=== PATIENT | male | born 2000 | race Caucasian/White ===

== ENCOUNTER 2018-06-17 12:42 | Emergency (ER) | payer OTHER | END 2018-06-17 16:34 | disposition home or self-care (01) | LOC: M ED 12:42 | DX: S39.012A Strain of muscle, fascia and tendon of lower back, initial encounter (principal); S39.013A Strain of muscle, fascia and tendon of pelvis, initial encounter; S20.219A Contusion of unspecified front wall of thorax, initial encounter; V43.52XA Car driver injured in collision with other type car in traffic accident, initial encounter; Y92.410 Unspecified street and highway as the place of occurrence of the external cause | CPT/HCPCS: 71101 ==

== ENCOUNTER 2018-10-24 14:03 | Emergency (ER) | payer OTHER ==
[~2018-10-24] VITALS: Ht 172.7 cm; Wt 77.8 kg
[~2018-10-24 14:03] MED LIST: IBUP-1022 PO; ROBA500T PO
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
--- NOTE | 2018-10-24 15:32 | REP ---
LEFT SHOULDER, THREE VIEWS: There is no evidence of an acute fracture, dislocation or intrinsic bone disease. IMPRESSION: No fracture or dislocation. Electronically Signed by Raji Rutherford MD 10/27/2018 11:55 A
--- NOTE | 2018-10-24 15:33 | REP ---
CHEST, TWO VIEWS: There is no evidence of acute infiltrate. No pleural effusion is seen. The heart is normal in size. The mediastinal silhouette is unremarkable. The visualized osseous structures are intact. IMPRESSION: No acute pulmonary disease. Electronically Signed by Raji Rutherford MD 10/27/2018 11:55 A
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
--- NOTE | 2018-10-24 15:43 | REP ---
RIGHT ANKLE, FOUR VIEWS: There is no evidence of an acute fracture, dislocation or intrinsic bone disease. IMPRESSION: No fracture or dislocation. Electronically Signed by Raji Rutherford MD 10/27/2018 11:57 A
[2018-10-24] MEDS ORDERED: NS 1,000 ML IV SCH (16:50)
[2018-10-24 18:25] VITALS: BP 139/60
--- NOTE | 2018-10-24 18:53 | ECGEPIP ---
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
== END 2018-10-24 18:34 | disposition short-term general hospital (02) ==
LOC: EDBD 14:03 → M ED 14:03
DX: S06.330A Contusion and laceration of cerebrum, unspecified, without loss of consciousness, initial encounter (principal); S02.5XXA Fracture of tooth (traumatic), initial encounter for closed fracture; I45.19 Other right bundle-branch block; W00.9XXA Unspecified fall due to ice and snow, initial encounter; Y92.89 Other specified places as the place of occurrence of the external cause; Y93.21 Activity, ice skating; Y99.9 Unspecified external cause status

== ENCOUNTER 2019-01-19 12:44 | Inpatient (IN) | payer OTHER ==
[~2019-01-19] VITALS: Ht 172.7 cm; Wt 75.6 kg
[2019-01-19 14:26] LABS: HEMATOCRIT 47.3 % (42.0-52.0); HEMOGLOBIN 16.8 g/dl (13.5-17.5); MEAN CORPUSCULAR HEMOGLOBIN 31.6 pg (27.0-33.0); MEAN CORPUSCULAR HGB CONC 35.5 g/dl (32.0-36.5); MEAN CORPUSCULAR VOLUME 89.1 fl (80.0-96.0); PLATELET COUNT, AUTOMATED 176 10^3/uL (150-450); RED BLOOD COUNT 5.31 10^6/uL (4.30-6.10); WHITE BLOOD COUNT 7.4 10^3/uL (4.0-10.0)
[2019-01-19 14:49] LABS: AMPHETAMINES LEVEL URINE NEGATIVE (NEGATIVE); BARBITURATES URINE NEGATIVE (NEGATIVE); BENZODIAZEPINES URINE NEGATIVE (NEGATIVE); CANNABINOIDS URINE NEGATIVE (NEGATIVE); COCAINE METABOLITE URINE NEGATIVE (NEGATIVE); METHADONE URINE NEGATIVE (NEGATIVE); OPIATES URINE NEGATIVE (NEGATIVE); PHENCYCLIDINE URINE NEGATIVE (NEGATIVE)
[2019-01-19 16:04] LABS: ACETAMINOPHEN LEVEL < 2.0 UG/ML (10.0-30.0); ALBUMIN 4.2 GM/DL (3.2-5.2); ALT/SGPT 24 U/L (12-78); BILIRUBIN,DIRECT 0.2 MG/DL (0.0-0.2); BILIRUBIN,TOTAL 0.7 MG/DL (0.2-1.0); BLOOD UREA NITROGEN 13 MG/DL (7-18); CALCIUM LEVEL 9.1 MG/DL (8.5-10.1); CARBON DIOXIDE LEVEL 30 MEQ/L (21-32); CHLORIDE LEVEL 104 MEQ/L (98-107); CREATININE FOR GFR 1.08 MG/DL (0.70-1.30); ETHYL ALCOHOL (ETHANOL) < 0.003 % (0.000-0.010); GLUCOSE, FASTING 81 MG/DL (70-100); POTASSIUM SERUM 4.2 MEQ/L (3.5-5.1); SALICYLATE LEVEL < 1.7 MG/DL (5.0-30.0); SODIUM LEVEL 141 MEQ/L (136-145); TOTAL PROTEIN 7.2 GM/DL (6.4-8.2)
[2019-01-19] MEDS ORDERED: MAALOX 30 ML SUSP *UDC PO PRN (17:00)
[2019-01-19] MEDS ORDERED: MOM 30ML SUSPENSION UDC PO PRN (17:00)
[2019-01-19] MEDS ORDERED: ACETAMINOPHEN TAB 650MG DOSE (2X325MG) PO PRN (17:00)
[2019-01-20 06:42] VITALS: BP 139/62
--- NOTE | 2019-01-20 10:04 | HPEPDOC ---
General Date of Admission Jan 19, 2019 at 16:49 Date of Service: Jan 20, 2019 Attending Physician: ALENA HINSON MD Chief Complaint The patient is a 18-year-old male admitted with a reason for visit of Unspecified Depressive Do. History of Present Illness Patient is a 18-year-old male, past medical history significant for depression, presented on account of worsening depression and suicidal ideation. Trigger for recent episode being recent visit to his grandfathers grave in [place]. Patient also reports prior suicide attempt at the age of 10 years. On assessment he denies any medical history or complaints. He denies chest pain, shortness of breath, weakness, nausea, fevers. Home Medications No Active Prescriptions or Reported Meds Allergies Coded Allergies: No Known Allergies (Unverified , 06/17/18) Past Medical History Medical History Depression Surgical History Abdominal surgery Family History Mother with bipolar disorder Social History * Smoker: Denies Alcohol: occationally Drugs: denies A-FIB/CHADSVASC A-FIB History Current/History of A-Fib/PAF?: No Current PO Anticoag Therapy: No Review of Systems Other systems A 10 point pertinent review of systems was completed, negative except as stated in the history of presenting illness. Physical Examination Other physical findings GENERAL: NAD SKIN : Warm, dry intact HEENT: Atraumatic, normocephalic, PERRL, moist mucous membrane CARDIOVASCULAR: Regular rate and rhythm, S1S2, no JVD, no edema, distal pulses + and palpable RESP: CTAB, no accessory muscle use noted ABDOMEN: BS+ non distended non tender MS: no joint deformities NEURO: Alert and oriented x 3, CN2-12 grossly intact PSYCH: no anxiety or agitation, appropriate mood and affect. Vital Signs Vital Signs Date Time Temp Pulse Resp B/P (MAP) Pulse Ox O2 Delivery O2 Flow Rate FiO2 01/20/19 06:42 98.4 79 14 139/62 (87) 01/19/19 17:09 98 Room Air Laboratory Data Labs 24H Laboratory Tests 2 01/19/19 14:03: Urine Amphetamines Screen NEGATIVE, Urine Benzodiazepines Screen NEGATIVE, Urine Opiates Screen NEGATIVE, Urine Methadone Screen NEGATIVE, Urine Barbiturates Screen NEGATIVE, Urine Phencyclidine Screen NEGATIVE, Urine Cocaine Metabolite Screen NEGATIVE, Urine Cannabinoids Screen NEGATIVE 01/19/19 14:04: Nucleated Red Blood Cells % (auto) 0.0, Anion Gap 7L, Calcium Level 9.1, Aspartate Amino Transf (AST/SGOT) 14, Alanine Aminotransferase (ALT/SGPT) 24, Alkaline Phosphatase 93, Total Bilirubin 0.7, Direct Bilirubin 0.2, Total Protein 7.2, Albumin 4.2, Albumin/Globulin Ratio 1.40, Thyroid Stimulating Hormone (TSH) 1.730, Salicylates Level < 1.7L, Acetaminophen Level < 2.0L, Ethyl Alcohol Level < 0.003 CBC/BMP Laboratory Tests 01/19/19 14:04 Red Blood Count 5.31, Mean Corpuscular Volume 89.1, Mean Corpuscular Hemoglobin 31.6, Mean Corpuscular Hemoglobin Concent 35.5, Red Cell Distribution Width 12.0 Assessment/Plan Depression with suicidal ideation -Treatment by primary team DVT prophylaxis -not indicated, patient is frequently ambulatory At this time patient has no acute medical problems or underlying comorbidities requiring active follow-up. Acute problems are managed by primary team. Medical team will sign off, please re-consult as needed. Plan / VTE VTE Prophylaxis Ordered?: No VTE Exclusion Mechanical Proph: Low Risk for VTE [facility] Jan 20, 2019 10:04
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
[2019-01-20] MEDS ORDERED: SERTRALINE HCL 50 MG TAB PO ONE (12:30)
[2019-01-20 18:42] VITALS: BP 110/65
[2019-01-20] MEDS: traZODone 50 MG TAB PO PRN (20:38)
[2019-01-21 06:40] VITALS: BP 122/61
[2019-01-21] MEDS: SERTRALINE HCL 50 MG TAB PO SCH (08:06)
--- NOTE | 2019-01-21 09:59 | MHIPNPDOC ---
[facility] Progress Note Progress Note DATE OF SERVICE: 01/21/19 HISTORY: Patient is a 18 -year-old , AD, male, with no previous psychiatric history who was brought to ED by [employer] after seen as walk-in at [facility] endorsing worsening depression over the past 3 weeks since visiting his grandfather's gave in KT and SI with plan to hang himself per ED. Per ED, pt stated that since visiting his grandfather's gave past issues have come up that he thought he was over with. Stated his grandfather pasted away when he was 10 and after that he attempted to kill himself at age 10 by swallowing quarters and 11 by hanging per ED. Pt stated that he liked his job in the [employer] in the ED and his job was not why he was feeling depressed or suicidal. VITAL SIGNS: See below. NEW TEST RESULTS: See below. CURRENT MEDICATIONS: See below. MENTAL STATUS EXAMINATION: General Appearance: well groomed, appears stated age, hospital scrubs/clothing Build: average Demeanor: withdrawn, very fidgety Eye Contact: fair Activity: anxious Behavior: cooperative, restless, anhedonia Speech: clear, spontaneous, normal volume, reg/rate,rhythm,volume, impoverished (slightly) Mood: depressed, anxious Mood "the same" Affect: constricted, flat, congruent, anxious Thought Process: logical/linear, depressed, slow, intact Thought Content (Delusions): none reported, other (denies HI, AVH. Endorses SI with no plan/intent and states will speak with staff if he develops a plan or intent, has positive intent for SI if d/c) Thought Content (Other): none reported, guilty (believes cause of grandfather's ), coherent Thought Content (Aggressive): none reported Perception (Hallucinations): none reported Perception (Other): none reported Cognition (Impairment of): none reported Cognition(Intelligence Est.): average Oriented: Awake, Alert, Oriented times three Insight: poor Judgment: Poor Psychosis: Denies DIAGNOSES: Depression Unspecified complicated bereavement ASSESSMENT:Pt seen and states that his mood is "the same" with continued depression, guilt over grandfather's , and passive SI. Denies plan/intent here but feels if he would d/c he would attempt to kill himself. States he feels safe here. Appears depressed and anxious. Agreeable to atarax prn anxiety, risks/benefits discussed. States he slept well last night. Feels he is tolerating his medications and but does not feel it is beneficial yet. 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 He is attending groups and finding them helpful. He denies HI, hallucinations, delusions. Pt feels safe here. MANAGEMENT PLAN: atarax prn anxiety Medications: zoloft 50mg daily for mood atarax 25mg q6hr prn anxiety TIME SPENT: 30 minutes. Vital Signs Vital Signs Date Time Temp Pulse Resp B/P (MAP) Pulse Ox O2 Delivery O2 Flow Rate FiO2 01/21/19 06:40 98.8 69 14 122/61 (81) 01/19/19 17:09 98 Room Air Current Medications Current Medications Acetaminophen (Tylenol Tab) 650 mg Q6HP PRN PO HEADACHE or DISCOMFORT; Start 01/19/19 at 17:00 Al Hydrox/Mg Hydrox/Simethicone (Mylanta) 30 ml Q4HP PRN PO HEARTBURN/INDIGESTION; Start 01/19/19 at 17:00 Home Med (Med Rec Complete!) ASDIRECTED XX ; Start 01/19/19 at 15:00; Stop 01/19/19 at 15:00; Status DC Hydroxyzine HCl (Atarax) 25 mg Q4HP PO ; Start 01/19/19 at 17:00 Magnesium Hydroxide (Milk Of Magnesia) 30 ml DAILYPRN PRN PO CONSTIPATION; Start 01/19/19 at 17:00 Sertraline HCl (Zoloft) 50 mg DAILY PO Last administered on 01/21/19at 08:06; Start 01/21/19 at 09:00 Trazodone HCl (Desyrel) 50 mg QHSP PRN PO INSOMNIA Last administered on 01/20/19at 20:38; Start 01/19/19 at 17:00 Allergies Coded Allergies: No Known Allergies (Unverified , 06/17/18) KIRBY YOON DO Jan 21, 2019 09:59
[2019-01-21 18:00] VITALS: BP 139/73
[2019-01-21] MEDS: traZODone 50 MG TAB PO PRN (21:18)
[2019-01-22 06:49] VITALS: BP 137/66
[2019-01-22] MEDS: SERTRALINE HCL 50 MG TAB PO SCH (08:40)
[2019-01-22] MEDS: hydrOXYzine 25 MG TAB PO SCH (08:40)
--- NOTE | 2019-01-22 10:25 | MHIPNPDOC ---
[facility] Progress Note Progress Note DATE OF SERVICE: 01/22/19 HISTORY: Patient is a 18 -year-old , AD, male, with no previous psychiatric history who was brought to ED by [employer] after seen as walk-in at [facility] endorsing worsening depression over the past 3 weeks since visiting his grandfather's gave in KT and SI with plan to hang himself per ED. Per ED, pt stated that since visiting his grandfather's gave past issues have come up that he thought he was over with. Stated his grandfather pasted away when he was 10 and after that he attempted to kill himself at age 10 by swallowing quarters and 11 by hanging per ED. Pt stated that he liked his job in [employer] in the ED and his job was not why he was feeling depressed or suicidal. VITAL SIGNS: See below. NEW TEST RESULTS: See below. CURRENT MEDICATIONS: See below. MENTAL STATUS EXAMINATION: No change since yesterday. General Appearance: well groomed, appears stated age, hospital scrubs/clothing Build: average Demeanor: withdrawn, very fidgety Eye Contact: fair Activity: anxious Behavior: cooperative, restless, anhedonia Speech: clear, spontaneous, normal volume, reg/rate,rhythm,volume, impoverished (slightly) Mood: depressed, anxious Mood "about the same" Affect: constricted, flat, congruent, anxious Thought Process: logical/linear, depressed, slow, intact Thought Content (Delusions): none reported, other (denies HI, AVH. Endorses SI with no plan/intent and states will speak with staff if he develops a plan or intent, has positive intent for SI if d/c) Thought Content (Other): none reported, guilty (believes cause of grandfather's ), coherent Thought Content (Aggressive): none reported Perception (Hallucinations): none reported Perception (Other): none reported Cognition (Impairment of): none reported Cognition(Intelligence Est.): average Oriented: Awake, Alert, Oriented times three Insight: poor Judgment: Poor Psychosis: Denies DIAGNOSES: Depression Unspecified complicated bereavement ASSESSMENT:Pt seen and states that his mood is "the same" with continued depression, guilt over grandfather's , and passive SI. Denies plan/intent here but feels if he would d/c he would attempt to kill himself if he were d/c still. States he feels safe here though. States his main reason to not kill himself is his children that he doesn't want to leave w/o a father and maybe his (states going thru some relationship problems currently), father, and sister, not his mother b/c "she isn't stable right now." Admits he loves his kids, , family and they all love and care about him thought. Appears depressed and less anxious today. States atarax beneficial for anxiety and tolerating well. States he slept well last night. Feels he is tolerating his medications and but does not feel it is beneficial at all and agreeable to stopping and starting effexor xr for mood, risks/benefits discussed. He is attending groups and finding them helpful and enjoys them. States he feels like he wants to isolated but isn't b/c he knows that would not be good for his mood. He denies HI, hallucinations, delusions. Pt feels safe here. MANAGEMENT PLAN: D/c zoloft as not beneficial and start effexor xr 37.5mg daily for mood Medications: effexor xr 37.5mg daily for mood atarax 25mg q6hr prn anxiety trazodone 50mg qhs prn insomnia TIME SPENT: 30 minutes. Vital Signs Vital Signs Date Time Temp Pulse Resp B/P (MAP) Pulse Ox O2 Delivery O2 Flow Rate FiO2 01/22/19 06:49 97.5 78 14 137/66 (89) 01/19/19 17:09 98 Room Air Current Medications Current Medications Acetaminophen (Tylenol Tab) 650 mg Q6HP PRN PO HEADACHE or DISCOMFORT; Start 01/19/19 at 17:00 Al Hydrox/Mg Hydrox/Simethicone (Mylanta) 30 ml Q4HP PRN PO HEARTBURN/INDIGESTION; Start 01/19/19 at 17:00 Home Med (Med Rec Complete!) ASDIRECTED XX ; Start 01/19/19 at 15:00; Stop 01/19/19 at 15:00; Status DC Hydroxyzine HCl (Atarax) 25 mg Q4HP PO Last administered on 01/22/19at 08:40; Start 01/19/19 at 17:00 Magnesium Hydroxide (Milk Of Magnesia) 30 ml DAILYPRN PRN PO CONSTIPATION; Start 01/19/19 at 17:00 Sertraline HCl (Zoloft) 50 mg DAILY PO Last administered on 01/22/19at 08:40; Start 01/21/19 at 09:00 Trazodone HCl (Desyrel) 50 mg QHSP PRN PO INSOMNIA Last administered on 01/21/19at 21:18; Start 01/19/19 at 17:00 Allergies Coded Allergies: No Known Allergies (Unverified , 06/17/18) KIRBY YOON DO Jan 22, 2019 10:25 am
[2019-01-22] MEDS ORDERED: VENLAFAXINE **XR** 37.5 MG CAPSULE PO ONE (11:00)
[2019-01-22 18:00] VITALS: BP 130/58
[2019-01-23 06:35] VITALS: BP 128/79
[2019-01-23] MEDS ORDERED: VENLAFAXINE **XR** 37.5 MG CAPSULE PO SCH (09:00)
--- NOTE | 2019-01-23 10:15 | MHIPNPDOC ---
[facility] Progress Note Progress Note DATE OF SERVICE: 01/23/19 HISTORY: Patient is a 18 -year-old , AD, male, with no previous psychiatric history who was brought to ED by NCO after seen as walk-in at [facility] endorsing worsening depression over the past 3 weeks since visiting his grandfather's gave in KT and SI with plan to hang himself per ED. Per ED, pt stated that since visiting his grandfather's gave past issues have come up that he thought he was over with. Stated his grandfather pasted away when he was 10 and after that he attempted to kill himself at age 10 by swallowing quarters and 11 by hanging per ED. Pt stated that he liked his job in [employer] in the ED and his job was not why he was feeling depressed or suicidal. VITAL SIGNS: See below. NEW TEST RESULTS: See below. CURRENT MEDICATIONS: See below. MENTAL STATUS EXAMINATION: No change since yesterday. General Appearance: well groomed, appears stated age, hospital scrubs/clothing Build: average Demeanor: withdrawn Eye Contact: fair Activity: anxious Behavior: cooperative, anhedonia Speech: clear, spontaneous, normal volume, reg/rate,rhythm,volume Mood: depressed, anxious Mood "anxious" Affect: depressed, constricted, flat, congruent, anxious Thought Process: logical/linear, depressed, slow, intact, increased anxious thoughts especially if alone or at night when trying to sleep Thought Content (Delusions): none reported, other (denies HI, AVH. Endorses SI with no plan/intent and states will speak with staff if he develops a plan or intent, has positive intent for SI if d/c) Thought Content (Other): none reported, guilty (believes cause of grandfather's ), coherent Thought Content (Aggressive): none reported Perception (Hallucinations): none reported Perception (Other): none reported Cognition (Impairment of): none reported Cognition(Intelligence Est.): average Oriented: Awake, Alert, Oriented times three Insight: poor Judgment: Poor Psychosis: Denies DIAGNOSES: Depression Unspecified complicated bereavement ASSESSMENT:Pt seen and states that his mood is "the same" with continued depression, guilt over grandfather's , and passive SI. Denies plan/intent here but feels if he would d/c he would attempt to kill himself if he were d/c still. States he feels safe here though. States his main reason to not kill himself is his children that he doesn't want to leave w/o a father and maybe his (states going thru some relationship problems currently), father, and sister, not his mother b/c "she isn't stable right now." Admits he loves his kids, , family and they all love and care about him thought. Appears depressed and less anxious today. States atarax beneficial for anxiety and tolerating well. Endorses increased anxious thoughts and insomnia since effexor xr started so decision made to go back to zoloft at high dose of 75mg daily as zoloft was not causing increased anxiety and insomnia and although had limited improvement in mood, SI on so increased. Pt agreeable. He is attending groups and finding them helpful and enjoys them. States he feels like he wants to isolated but isn't b/c he knows that would not be good for his mood. He denies HI, hallucinations, delusions. Pt feels safe here. MANAGEMENT PLAN: D/c effexor xr 37.5mg as not beneficial and restart zoloft 75mg daily for mood Medications: zoloft 75mg daily atarax 25mg q6hr prn anxiety trazodone 50mg qhs prn insomnia TIME SPENT: 30 minutes. Vital Signs Vital Signs Date Time Temp Pulse Resp B/P (MAP) Pulse Ox O2 Delivery O2 Flow Rate FiO2 01/23/19 06:35 97.5 64 14 128/79 (95) 01/19/19 17:09 98 Room Air Current Medications Current Medications Acetaminophen (Tylenol Tab) 650 mg Q6HP PRN PO HEADACHE or DISCOMFORT; Start 01/19/19 at 17:00 Al Hydrox/Mg Hydrox/Simethicone (Mylanta) 30 ml Q4HP PRN PO HEARTBURN/INDIGESTION; Start 01/19/19 at 17:00 Home Med (Med Rec Complete!) ASDIRECTED XX ; Start 01/19/19 at 15:00; Stop 01/19/19 at 15:00; Status DC Hydroxyzine HCl (Atarax) 25 mg Q4HP PO Last administered on 01/22/19at 08:40; Start 01/19/19 at 17:00 Magnesium Hydroxide (Milk Of Magnesia) 30 ml DAILYPRN PRN PO CONSTIPATION; Start 01/19/19 at 17:00 Sertraline HCl (Zoloft) 50 mg DAILY PO Last administered on 01/22/19at 08:40; Start 01/21/19 at 09:00; Stop 01/22/19 at 10:27; Status DC Trazodone HCl (Desyrel) 50 mg QHSP PRN PO INSOMNIA Last administered on 01/21/19at 21:18; Start 01/19/19 at 17:00 Venlafaxine HCl (Effexor Xr) 37.5 mg DAILY PO Last administered on 01/23/19at 08:42; Start 01/23/19 at 09:00 Allergies Coded Allergies: No Known Allergies (Unverified , 06/17/18) KIRBY YOON DO Jan 23, 2019 10:15 am
[2019-01-23 18:06] VITALS: BP 150/68
[2019-01-23] MEDS: traZODone 50 MG TAB PO PRN (21:04)
[2019-01-24 06:39] VITALS: BP 125/60
[2019-01-24] MEDS: SERTRALINE HCL 25 MG TABLET PO SCH (08:55)
[2019-01-24 18:07] VITALS: BP_SYST 129; BP_DIAS 67; BP_DIAS 76
[2019-01-24] MEDS: traZODone 50 MG TAB PO PRN (21:46)
[2019-01-25 06:44] VITALS: BP 124/59
[2019-01-25] MEDS: SERTRALINE HCL 25 MG TABLET PO SCH (09:04)
[2019-01-25 18:08] VITALS: BP 136/70
[2019-01-25] MEDS: traZODone 50 MG TAB PO PRN (21:18)
[2019-01-26 06:44] VITALS: BP 111/72
[2019-01-26] MEDS: SERTRALINE HCL 25 MG TABLET PO SCH (08:19)
--- NOTE | 2019-01-26 11:14 | MHIPNPDOC ---
[facility] Progress Note Progress Note DATE OF SERVICE: 01/26/19 HISTORY: Patient is a 18 -year-old , AD, male, with no previous psychiatric history who was brought to ED by NCO after seen as walk-in at [facility] endorsing worsening depression over the past 3 weeks since visiting his grandfather's gave in KT and SI with plan to hang himself per ED. Per ED, pt stated that since visiting his grandfather's gave past issues have come up that he thought he was over with. Stated his grandfather pasted away when he was 10 and after that he attempted to kill himself at age 10 by swallowing quarters and 11 by hanging per ED. Pt stated that he liked his job in [employer] in the ED and his job was not why he was feeling depressed or suicidal. VITAL SIGNS: See below. NEW TEST RESULTS: See below. CURRENT MEDICATIONS: See below. MENTAL STATUS EXAMINATION: More depressed and suicidal today General Appearance: well groomed, appears stated age, hospital scrubs/clothing Build: average Demeanor: withdrawn Eye Contact: fair Activity: anxious Behavior: cooperative, anhedonia Speech: clear, spontaneous, normal volume, reg/rate,rhythm,volume Mood: depressed, anxious Mood "anxious" Affect: depressed, constricted, flat, congruent, anxious Thought Process: logical/linear, depressed, slow, intact, increased anxious thoughts especially if alone or at night when trying to sleep Thought Content (Delusions): none reported, other (denies HI, AVH. Endorses SI with plan to harm himself by sharpening the end of a toothbrush that was actually found by staff slightly sharpened after his roommate given to him by his roommate that he denied when asked during interview. Patient states will speak with staff if he continues to have SI. Thought Content (Other): none reported, guilty (believes cause of grandfather's ), coherent Thought Content (Aggressive): none reported Perception (Hallucinations): none reported Perception (Other): none reported Cognition (Impairment of): none reported Cognition(Intelligence Est.): average Oriented: Awake, Alert, Oriented times three Insight: poor Judgment: Poor Psychosis: Denies DIAGNOSES: Depression Unspecified complicated bereavement ASSESSMENT:Patient says he feels more depressed and anxious. He was talking to his roommate asking about ways to harm himself while on the unit. Patient was told he could sharpen an object on the door to hurt himself. Patient was found to be sharpening the end of a toothbrush on an [employer] board that his roommate gave him that he denied when seen for interview. Plan coordinated with staff to put pt on 1:1 safety as unreliable regarding suicidal thoughts/intent and separate pt from his roommate who is giving pt ways to harm self on unit. Patient says he has not been sleeping because he is anxious thoughts. Patient has been writing rap lyrics to express the pain he has been feeling that he states is helpful. Patient says he feels like his medications are helping but not as much as he would like. Is attending groups and finding beneficial. Denies HI, hallucinations, delusions. Very poor insight and judgement. MANAGEMENT PLAN: Increase Zoloft to 100 mg daily. Add Seroquel 25 mg for insomnia. Patient will be put on a one-to-one sitter due to the patient's suicidality and attempt to sharpen toothbrush against [employer] board. Patient is unable to contract for safety. increase zoloft to 100mg daily for mood, seroquel 25mg qhs for sleep secondary to anxiety Medications: zoloft 100mg daily atarax 25mg q6hr prn anxiety trazodone 50mg qhs prn insomnia seroquel 25mg qhs TIME SPENT: 30 minutes. Vital Signs Vital Signs Date Time Temp Pulse Resp B/P (MAP) Pulse Ox O2 Delivery O2 Flow Rate FiO2 01/26/19 06:44 97.9 72 14 111/72 (85) Current Medications Current Medications Acetaminophen (Tylenol Tab) 650 mg Q6HP PRN PO HEADACHE or DISCOMFORT; Start 01/19/19 at 17:00 Al Hydrox/Mg Hydrox/Simethicone (Mylanta) 30 ml Q4HP PRN PO HEARTBURN/INDIGESTION; Start 01/19/19 at 17:00 Home Med (Med Rec Complete!) ASDIRECTED XX ; Start 01/19/19 at 15:00; Stop 01/19/19 at 15:00; Status DC Hydroxyzine HCl (Atarax) 25 mg Q4HP PO Last administered on 01/22/19at 08:40; Start 01/19/19 at 17:00 Magnesium Hydroxide (Milk Of Magnesia) 30 ml DAILYPRN PRN PO CONSTIPATION; Start 01/19/19 at 17:00 Sertraline HCl (Zoloft) 50 mg DAILY PO Last administered on 01/22/19at 08:40; Start 01/21/19 at 09:00; Stop 01/22/19 at 10:27; Status DC Sertraline HCl (Zoloft) 75 mg DAILY PO Last administered on 01/26/19at 08:19; Start 01/24/19 at 09:00 Trazodone HCl (Desyrel) 50 mg QHSP PRN PO INSOMNIA Last administered on 01/25/19at 21:18; Start 01/19/19 at 17:00 Venlafaxine HCl (Effexor Xr) 37.5 mg DAILY PO Last administered on 01/23/19at 08:42; Start 01/23/19 at 09:00; Stop 01/23/19 at 10:16; Status DC Allergies Coded Allergies: No Known Allergies (Unverified , 06/17/18) KIRBY YOON DO Jan 26, 2019 9:30 am
[2019-01-26] MEDS ORDERED: SERTRALINE HCL 25 MG TABLET PO ONE (11:30)
[2019-01-26 18:00] VITALS: BP 138/72
[2019-01-26] MEDS: QUEtiapine FUMARATE 25 MG TAB PO SCH (20:18)
[2019-01-26] MEDS: traZODone 50 MG TAB PO PRN (20:53)
[2019-01-27 06:35] VITALS: BP 117/57
[2019-01-27] MEDS: SERTRALINE 100 MG TAB PO SCH (08:05)
--- NOTE | 2019-01-27 09:30 | MHIPNPDOC ---
[facility] Progress Note Progress Note DATE OF SERVICE: 01/27/19 HISTORY: Patient is a 18 -year-old , AD, male, with no previous psychiatric history who was brought to ED by NCO after seen as walk-in at [facility] endorsing worsening depression over the past 3 weeks since visiting his grandfather's gave in KT and SI with plan to hang himself per ED. Per ED, pt stated that since visiting his grandfather's gave past issues have come up that he thought he was over with. Stated his grandfather pasted away when he was 10 and after that he attempted to kill himself at age 10 by swallowing quarters and 11 by hanging per ED. Pt stated that he liked his job in [employer] in the ED and his job was not why he was feeling depressed or suicidal. VITAL SIGNS: See below. NEW TEST RESULTS: See below. CURRENT MEDICATIONS: See below. MENTAL STATUS EXAMINATION: More depressed and suicidal today General Appearance: well groomed, appears stated age, hospital scrubs/clothing Build: average Demeanor: withdrawn Eye Contact: fair Activity: anxious Behavior: cooperative, anhedonia Speech: clear, spontaneous, normal volume, reg/rate,rhythm,volume Mood: depressed, anxious Mood "anxious" Affect: depressed, constricted, flat, congruent, anxious Thought Process: logical/linear, depressed, slow, intact, denies anxious thoughts at night with seroquel Thought Content (Delusions): none reported, other (denies HI, AVH. Per 01/26/19 "Endorses SI with plan to harm himself by sharpening the end of a toothbrush t hat was actually found by staff slightly sharpened after his roommate given to him by his roommate that he denied when asked during interview." Pt put on 1:1 for safety. 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 Patient says he is having less anxious thoughts while trying to sleep. He says he is attending group therapy sessions and believes they are helping. He still has suicidal ideations although he says he thinks of his kids so he does not act on them. He endorses anxiety due to depressive thoughts and memory of his mother hanging herself while he was present at 17y/o and attempted to save here. Still suffers with grief about her suicide and his grandfather's that perpetuates his SI. States he kids are a motivating factor for him to stay alive. Discussed starting abilify to augment zoloft regarding depression and pt agreeable, risk benefits discussed. He denies HI, auditory or visual hallucinations. MANAGEMENT PLAN: Start Abilify 5 mg daily today and continue other medications. Patient will remain on one-to-one until he able to contract for safety and is denying SI. Medications: zoloft 100mg daily atarax 25mg q6hr prn anxiety trazodone 50mg qhs prn insomnia seroquel 25mg qhs Abilify 5 mg daily TIME SPENT: 30 minutes. Vital Signs Vital Signs Date Time Temp Pulse Resp B/P (MAP) Pulse Ox O2 Delivery O2 Flow Rate FiO2 01/27/19 06:35 98.0 65 12 117/57 (77) Current Medications Current Medications Acetaminophen (Tylenol Tab) 650 mg Q6HP PRN PO HEADACHE or DISCOMFORT; Start 01/19/19 at 17:00 Al Hydrox/Mg Hydrox/Simethicone (Mylanta) 30 ml Q4HP PRN PO HEARTBURN/INDIGESTION; Start 01/19/19 at 17:00 Home Med (Med Rec Complete!) ASDIRECTED XX ; Start 01/19/19 at 15:00; Stop 01/19/19 at 15:00; Status DC Hydroxyzine HCl (Atarax) 25 mg Q4HP PO Last administered on 01/22/19at 08:40; Start 01/19/19 at 17:00 Magnesium Hydroxide (Milk Of Magnesia) 30 ml DAILYPRN PRN PO CONSTIPATION; Start 01/19/19 at 17:00 Quetiapine Fumarate (SEROquel) 25 mg QHS PO Last administered on 01/26/19 20:18; Start 01/26/19 at 21:00 Sertraline HCl (Zoloft) 50 mg DAILY PO Last administered on 01/22/19 08:40; Start 01/21/19 at 09:00; Stop 01/22/19 at 10:27; Status DC Sertraline HCl (Zoloft) 75 mg DAILY PO Last administered on 01/26/19 08:19; Start 01/24/19 at 09:00; Stop 01/26/19 at 11:26; Status DC Sertraline HCl (Zoloft) 100 mg DAILY PO Last administered on 01/27/19 08:05; Start 01/27/19 at 09:00 Trazodone HCl (Desyrel) 50 mg QHSP PRN PO INSOMNIA Last administered on 01/26/19at 20:53; Start 01/19/19 at 17:00 Venlafaxine HCl (Effexor Xr) 37.5 mg DAILY PO Last administered on 01/23/19 08:42; Start 01/23/19 at 09:00; Stop 01/23/19 at 10:16; Status DC Allergies Coded Allergies: No Known Allergies (Unverified , 06/17/18) GME ATTESTATION GME ATTESTATION My faculty preceptor for this patient encounter was physically present during the encounter and was fully available. All aspects of the patient interview, examination, medical decision making process, and medical care plan development were reviewed and approved by the faculty preceptor. The faculty preceptor is aware and concurs with the plan as stated in the body of this note and will attest to such by his/her cosignature. ATTENDING NOTE Saw pt with resident and edited note based on my assessment. Pt remains suicidal and needs to be on 1:1 for safety. Abilify started as stated above. ABBI JONES DO Jan 27, 2019 09:30 KIRBY YOON DO Jan 27, 2019 10:08
[2019-01-27 18:00] VITALS: BP 130/66
[2019-01-27] MEDS: QUEtiapine FUMARATE 25 MG TAB PO SCH (21:17)
[2019-01-27] MEDS: traZODone 50 MG TAB PO PRN (21:17)
[2019-01-28 06:42] VITALS: BP 133/61
[2019-01-28] MEDS: SERTRALINE 100 MG TAB PO SCH (08:09)
--- NOTE | 2019-01-28 10:18 | MHIPNPDOC ---
[facility] Progress Note Progress Note DATE OF SERVICE: 01/28/19 HISTORY: Patient is a 18 -year-old , AD, male, with no previous psychiatric history who was brought to ED by NCO after seen as walk-in at [facility] endorsing worsening depression over the past 3 weeks since visiting his grandfather's gave in KT and SI with plan to hang himself per ED. Per ED, pt stated that since visiting his grandfather's gave past issues have come up that he thought he was over with. Stated his grandfather pasted away when he was 10 and after that he attempted to kill himself at age 10 by swallowing quarters and 11 by hanging per ED. Pt stated that he liked his job in [employer] in the ED and his job was not why he was feeling depressed or suicidal. VITAL SIGNS: See below. NEW TEST RESULTS: See below. CURRENT MEDICATIONS: See below. MENTAL STATUS EXAMINATION: less depressed and suicidal today General Appearance: well groomed, appears stated age, hospital scrubs/clothing Build: average Demeanor: withdrawn Eye Contact: fair, stared at the floor when talking about going to digital production manager care Activity: anxious Behavior: cooperative, anhedonia, became tearful when discussing [facility] treatment Speech: clear, spontaneous, quiet speech, reg/rate,rhythm Mood: depressed, anxious Mood "anxious" Affect: depressed, constricted, flat, congruent, anxious Thought Process: logical/linear, depressed, slow, intact, denies anxious thoughts at night with Seroquel Thought Content (Delusions): none reported, other (denies HI, AVH. Per 01/26/19 "Endorses SI with plan to harm himself by sharpening the end of a toothbrush that was actually found by staff slightly sharpened after his roommate given to him by his roommate that he denied when asked during interview." Pt put on 1:1 for safety. 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 Patient is rating his depression as a 7/10 where yesterday it was a 9/10. He says he is still having suicidal thoughts however, they are slightly less than yesterday. Patient did get teary eyed when I was talking to him about [facility] care. I explained to him that he would be able to get more targeted therapy treatment for what has specifically happened to him in order to get the treatment he needs. He says he is more tired today and got an okay night of sleep last night. He has been attending group therapy sessions however, did not go this morning because he was too tired. Says he plans on going to some later today. States he's tolerating abilify started yesterday and feels it beneficial. Denies HI, AVH. Denies psychosis. MANAGEMENT PLAN: Continue going to group therapy sessions and current medications. It is strongly recommended that the patient go to digital production manager care where he can receive targeted therapy for PTSD due to his previous trauma. Continue one-to-one sitter for continued suicidal thoughts. Medications: zoloft 100mg daily atarax 25mg q6hr prn anxiety trazodone 50mg qhs prn insomnia seroquel 25mg qhs Abilify 5 mg daily TIME SPENT: 30 minutes. Vital Signs Vital Signs Date Time Temp Pulse Resp B/P (MAP) Pulse Ox O2 Delivery O2 Flow Rate FiO2 01/28/19 06:42 98.3 77 14 133/61 (85) Current Medications Current Medications Acetaminophen (Tylenol Tab) 650 mg Q6HP PRN PO HEADACHE or DISCOMFORT; Start 01/19/19 at 17:00 Al Hydrox/Mg Hydrox/Simethicone (Mylanta) 30 ml Q4HP PRN PO HEARTBURN/INDIGESTION; Start 01/19/19 at 17:00 Aripiprazole (AbiLIFY) 5 mg DAILY PO Last administered on 01/28/19at 08:09; Start 01/28/19 at 09:00 Home Med (Med Rec Complete!) ASDIRECTED XX ; Start 01/19/19 at 15:00; Stop 01/19/19 at 15:00; Status DC Hydroxyzine HCl (Atarax) 25 mg Q4HP PO Last administered on 01/22/19 08:40; Start 01/19/19 at 17:00 Magnesium Hydroxide (Milk Of Magnesia) 30 ml DAILYPRN PRN PO CONSTIPATION; Start 01/19/19 at 17:00 Quetiapine Fumarate (SEROquel) 25 mg QHS PO Last administered on 01/27/19at 21:17; Start 01/26/19 at 21:00 Sertraline HCl (Zoloft) 50 mg DAILY PO Last administered on 01/22/19 08:40; Start 01/21/19 at 09:00; Stop 01/22/19 at 10:27; Status DC Sertraline HCl (Zoloft) 75 mg DAILY PO Last administered on 01/26/19 08:19; Start 01/24/19 at 09:00; Stop 01/26/19 at 11:26; Status DC Sertraline HCl (Zoloft) 100 mg DAILY PO Last administered on 01/28/19 08:09; Start 01/27/19 at 09:00 Trazodone HCl (Desyrel) 50 mg QHSP PRN PO INSOMNIA Last administered on 01/27/19 21:17; Start 01/19/19 at 17:00 Venlafaxine HCl (Effexor Xr) 37.5 mg DAILY PO Last administered on 01/23/19 08:42; Start 01/23/19 at 09:00; Stop 01/23/19 at 10:16; Status DC Allergies Coded Allergies: No Known Allergies (Unverified , 06/17/18) GME ATTESTATION GME ATTESTATION My faculty preceptor for this patient encounter was physically present during the encounter and was fully available. All aspects of the patient interview, examination, medical decision making process, and medical care plan development were reviewed and approved by the faculty preceptor. The faculty preceptor is aware and concurs with the plan as stated in the body of this note and will attest to such by his/her cosignature. ATTENDING NOTE Saw pt with resident, edited, and agree with assessment. ABBI JONES DO Jan 28, 2019 10:18 am KIRBY YOON DO Jan 28, 2019 11:28 am
[2019-01-28 18:00] VITALS: BP 132/68
[2019-01-28] MEDS: QUEtiapine FUMARATE 25 MG TAB PO SCH (20:54)
[2019-01-28] MEDS: traZODone 50 MG TAB PO PRN (20:54)
[2019-01-29 07:04] VITALS: BP 115/51
[2019-01-29] MEDS: SERTRALINE 100 MG TAB PO SCH (09:19)
--- NOTE | 2019-01-29 09:51 | MHIPNPDOC ---
[facility] Progress Note Progress Note DATE OF SERVICE: 01/29/19 HISTORY: Patient is a 18 -year-old , AD, male, with no previous psychiatric history who was brought to ED by NCO after seen as walk-in at [facility] endorsing worsening depression over the past 3 weeks since visiting his grandfather's gave in KT and SI with plan to hang himself per ED. Per ED, pt stated that since visiting his grandfather's gave past issues have come up that he thought he was over with. Stated his grandfather pasted away when he was 10 and after that he attempted to kill himself at age 10 by swallowing quarters and 11 by hanging per ED. Pt stated that he liked his job in the [employer] in the ED and his job was not why he was feeling depressed or suicidal. VITAL SIGNS: See below. NEW TEST RESULTS: See below. CURRENT MEDICATIONS: See below. MENTAL STATUS EXAMINATION: less depressed and less suicidal today, General Appearance: well groomed, appears stated age, hospital scrubs/clothing holding his rap ranjan book Build: average Demeanor: withdrawn Eye Contact: fair, stared at the floor when talking about going to district customs director care Activity: anxious Behavior: cooperative, anhedonia, apprehensive about assisted treatment Speech: clear, spontaneous, quiet speech, reg/rate,rhythm Mood: depressed, anxious Mood "anxious" Affect: depressed, constricted, flat, congruent, anxious Thought Process: logical/linear, depressed, slow, intact, denies anxious thoughts at night with Seroquel Thought Content (Delusions): none reported, other (denies HI, AVH. Per 01/26/19 "Endorses SI with plan to harm himself by sharpening the end of a toothbrush that was actually found by staff slightly sharpened after his roommate given to him by his roommate that he denied when asked during interview." Pt put on 1:1 for safety. States he feels safe today with less SI and no intent. 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 Patient says he will tell someone if these thoughts become worse and says he will not act on these ideas. He is still thinking about going to district customs director care. 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 He was asking about cost, and how he would get down to the district customs director care. He was also concerned about being med boarded out of the if he was to go to district customs director care. We explained that going to district customs director care would help him avoid being med boarded. Patient's questions were answered regarding cost and travel. He also says the concern about his dog has been addressed as well. States he's tolerating abilify started yesterday and feels it beneficial. Denies HI, AVH. Denies psychosis. MANAGEMENT PLAN: Continue going to group therapy sessions and current me dications. It is strongly recommended that the patient go to assisted care where he can receive targeted therapy for PTSD due to his previous trauma. One-to-one sitter will be discontinued as patient has not acted on any thoughts for the last 2 days and denies SI intent/plan. Medications: zoloft 100mg daily atarax 25mg q6hr prn anxiety trazodone 50mg qhs prn insomnia seroquel 25mg qhs Abilify 5 mg daily TIME SPENT: 30 minutes. Vital Signs Vital Signs Date Time Temp Pulse Resp B/P (MAP) Pulse Ox O2 Delivery O2 Flow Rate FiO2 01/29/19 07:04 97.0 80 14 115/51 (72) Current Medications Current Medications Acetaminophen (Tylenol Tab) 650 mg Q6HP PRN PO HEADACHE or DISCOMFORT; Start 01/19/19 at 17:00 Al Hydrox/Mg Hydrox/Simethicone (Mylanta) 30 ml Q4HP PRN PO HEARTBURN/INDIGESTION; Start 01/19/19 at 17:00 Aripiprazole (AbiLIFY) 5 mg DAILY PO Last administered on 01/29/19at 09:19; Start 01/28/19 at 09:00 Home Med (Med Rec Complete!) ASDIRECTED XX ; Start 01/19/19 at 15:00; Stop 01/19/19 at 15:00; Status DC Hydroxyzine HCl (Atarax) 25 mg Q4HP PO Last administered on 01/22/19at 08:40; Start 01/19/19 at 17:00 Magnesium Hydroxide (Milk Of Magnesia) 30 ml DAILYPRN PRN PO CONSTIPATION; Start 01/19/19 at 17:00 Quetiapine Fumarate (SEROquel) 25 mg QHS PO Last administered on 01/28/19at 20:54; Start 01/26/19 at 21:00 Sertraline HCl (Zoloft) 50 mg DAILY PO Last administered on 01/22/19 08:40; Start 01/21/19 at 09:00; Stop 01/22/19 at 10:27; Status DC Sertraline HCl (Zoloft) 75 mg DAILY PO Last administered on 01/26/19at 08:19; Start 01/24/19 at 09:00; Stop 01/26/19 at 11:26; Status DC Sertraline HCl (Zoloft) 100 mg DAILY PO Last administered on 01/29/19at 09:19; Start 01/27/19 at 09:00 Trazodone HCl (Desyrel) 50 mg QHSP PRN PO INSOMNIA Last administered on 01/28/19at 20:54; Start 01/19/19 at 17:00 Venlafaxine HCl (Effexor Xr) 37.5 mg DAILY PO Last administered on 01/23/19at 08:42; Start 01/23/19 at 09:00; Stop 01/23/19 at 10:16; Status DC Allergies Coded Allergies: No Known Allergies (Unverified , 06/17/18) GME ATTESTATION GME ATTESTATION My faculty preceptor for this patient encounter was physically present during the encounter and was fully available. All aspects of the patient interview, examination, medical decision making process, and medical care plan development were reviewed and approved by the faculty preceptor. The faculty preceptor is aware and concurs with the plan as stated in the body of this note and will attest to such by his/her cosignature. ATTENDING NOTE Saw pt with resident and agree with assessment. ABBI JONES DO Jan 29, 2019 9:51 am KIRBY YOON DO Jan 29, 2019 12:10 pm
[2019-01-29 18:00] VITALS: BP 143/65
[2019-01-29] MEDS: QUEtiapine FUMARATE 25 MG TAB PO SCH (21:13)
[2019-01-29] MEDS: traZODone 50 MG TAB PO PRN (21:14)
[2019-01-30 07:00] VITALS: BP 119/57
[2019-01-30] MEDS: SERTRALINE 100 MG TAB PO SCH (08:23)
--- NOTE | 2019-01-30 09:07 | MHIPNPDOC ---
[facility] Progress Note Progress Note DATE OF SERVICE: 01/30/19 HISTORY: Patient is a 18 -year-old , AD, male, with no previous psychiatric history who was brought to ED by NCO after seen as walk-in at [facility] endorsing worsening depression over the past 3 weeks since visiting his grandfather's gave in KT and SI with plan to hang himself per ED. Per ED, pt stated that since visiting his grandfather's gave past issues have come up that he thought he was over with. Stated his grandfather pasted away when he was 10 and after that he attempted to kill himself at age 10 by swallowing quarters and 11 by hanging per ED. Pt stated that he liked his job in the [employer] in the ED and his job was not why he was feeling depressed or suicidal. VITAL SIGNS: See below. NEW TEST RESULTS: See below. CURRENT MEDICATIONS: See below. MENTAL STATUS EXAMINATION: less depressed and less suicidal today, General Appearance: well groomed, appears stated age, hospital scrubs/clothing holding his rap ranjan book Build: average Demeanor: withdrawn Eye Contact: fair, stared at the floor when talking about going to intermodal dispatcher care Activity: anxious Behavior: cooperative, anhedonia, apprehensive about alf treatment Speech: clear, spontaneous, quiet speech, reg/rate, rhythm Mood: depressed, anxious Mood "anxious" Affect: depressed, constricted, flat, congruent, anxious Thought Process: logical/linear, depressed, slow, intact, denies anxious thoughts at night with Seroquel Thought Content (Delusions): none reported, other (denies HI, AVH. Per 01/26/19 "Endorses SI with plan to harm himself by sharpening the end of a toothbrush that was actually found by staff slightly sharpened after his roommate given to him by his roommate that he denied when asked during interview." Pt put on 1:1 for safety. States he feels safe today with less SI and no intent. 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 Patient says he is still having suicidal thoughts however, these are less. Patient says he will tell someone if these thoughts become worse and says he will not act on these ideas. He is still thinking about going to alf care. He has not made his decision yet as states he's anxious of going somewhere new which is making it difficult for him to make decision to go to group home treatment. Encouraged to write a anxiety, consequences and positive benefits of going vs not going to help him make decision to go. We explained that going to intermodal dispatcher care would help him avoid being med boarded. States he's tolerating abilify started yesterday and feels it beneficial. Denies HI, AVH. Denies psychosis. MANAGEMENT PLAN: Continue going to group therapy sessions and current medications. It is strongly recommended that the patient go to alf care where he can receive targeted therapy for PTSD due to his previous trauma. One-to-one sitter will be discontinued as patient has not acted on any thoughts for the last 2 days and denies SI intent/plan. Medications: zoloft 100mg daily atarax 25mg q6hr prn anxiety trazodone 50mg qhs prn insomnia seroquel 25mg qhs Abilify 5 mg daily TIME SPENT: 30 minutes. Vital Signs Vital Signs Date Time Temp Pulse Resp B/P (MAP) Pulse Ox O2 Delivery O2 Flow Rate FiO2 01/30/19 07:00 98.7 70 14 119/57 (77) Current Medications Current Medications Acetaminophen (Tylenol Tab) 650 mg Q6HP PRN PO HEADACHE or DISCOMFORT; Start 01/19/19 at 17:00 Al Hydrox/Mg Hydrox/Simethicone (Mylanta) 30 ml Q4HP PRN PO HEARTBURN/INDIGESTION; Start 01/19/19 at 17:00 Aripiprazole (AbiLIFY) 5 mg DAILY PO Last administered on 01/30/19at 08:23; Start 01/28/19 at 09:00 Home Med (Med Rec Complete!) ASDIRECTED XX ; Start 01/19/19 at 15:00; Stop 01/19/19 at 15:00; Status DC Hydroxyzine HCl (Atarax) 25 mg Q4HP PO Last administered on 01/22/19at 08:40; Start 01/19/19 at 17:00 Magnesium Hydroxide (Milk Of Magnesia) 30 ml DAILYPRN PRN PO CONSTIPATION; Start 01/19/19 at 17:00 Quetiapine Fumarate (SEROquel) 25 mg QHS PO Last administered on 01/29/19at 21:13; Start 01/26/19 at 21:00 Sertraline HCl (Zoloft) 50 mg DAILY PO Last administered on 01/22/19at 08:40; Start 01/21/19 at 09:00; Stop 01/22/19 at 10:27; Status DC Sertraline HCl (Zoloft) 75 mg DAILY PO Last administered on 01/26/19at 08:19; Start 01/24/19 at 09:00; Stop 01/26/19 at 11:26; Status DC Sertraline HCl (Zoloft) 100 mg DAILY PO Last administered on 01/30/19at 08:23; Start 01/27/19 at 09:00 Trazodone HCl (Desyrel) 50 mg QHSP PRN PO INSOMNIA Last administered on 01/29/19at 21:14; Start 01/19/19 at 17:00 Venlafaxine HCl (Effexor Xr) 37.5 mg DAILY PO Last administered on 01/23/19at 08:42; Start 01/23/19 at 09:00; Stop 01/23/19 at 10:16; Status DC Allergies Coded Allergies: No Known Allergies (Unverified , 06/17/18) KIRBY YOON DO Jan 30, 2019 8:31 am
[2019-01-30 18:43] VITALS: BP 123/68
[2019-01-30] MEDS: QUEtiapine FUMARATE 25 MG TAB PO SCH (21:47)
[2019-01-30] MEDS: traZODone 50 MG TAB PO PRN (22:13)
[2019-01-31 06:56] VITALS: BP 114/53
[2019-01-31] MEDS: SERTRALINE 100 MG TAB PO SCH (08:29)
--- NOTE | 2019-01-31 14:37 | MHIPNPDOC ---
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 VITAL SIGNS: See below. NEW TEST RESULTS:, None. CURRENT MEDICATIONS: See below. MENTAL STATUS EXAMINATION: Patient is 18-year old male, who is being treated for depression by Dr. Ruiz. Speech: Is. No gross abnormality. Language skills are no gross abnormality. Thought processes including:. No hallucinations or delusions, obsessions, compulsions or phobias. Thought content: As above. Abstract reasoning, and computation:, Able to abstract. Description of associations:. Loose association. Description of abnormal or psychotic thoughts: Psychotic thought. Judgment: Unclear as to whether he wants to go to long-term. Insight: Limited. Orientation:. Full 3. Recent and remote memory:. Apparently, intact. Attention span and concentration:, Intact. Language:, Intact. Fund of knowledge:, Full. Mood: Variable. Affect: Flat. DIAGNOSES: 1.. Major depression. ASSESSMENT: Patient has. Discussed long-term care with Dr. Ruiz, but since this is his first admission. He is not sure yet and will discuss it further with Dr. Ruiz MANAGEMENT PLAN:. Continued treatment of depression and possible suggestion of long-term care. TIME SPENT: 35 minutes. Vital Signs Vital Signs Date Time Temp Pulse Resp B/P (MAP) Pulse Ox O2 Delivery O2 Flow Rate FiO2 01/31/19 06:56 98.4 66 14 114/53 (73) Current Medications Current Medications Acetaminophen (Tylenol Tab) 650 mg Q6HP PRN PO HEADACHE or DISCOMFORT; Start 01/19/19 at 17:00 Al Hydrox/Mg Hydrox/Simethicone (Mylanta) 30 ml Q4HP PRN PO HEARTBURN/INDIGESTION; Start 01/19/19 at 17:00 Aripiprazole (AbiLIFY) 5 mg DAILY PO Last administered on 01/31/19at 08:29; Start 01/28/19 at 09:00 Home Med (Med Rec Complete!) ASDIRECTED XX ; Start 01/19/19 at 15:00; Stop 01/19/19 at 15:00; Status DC Hydroxyzine HCl (Atarax) 25 mg Q4HP PO Last administered on 01/22/19at 08:40; Start 01/19/19 at 17:00 Magnesium Hydroxide (Milk Of Magnesia) 30 ml DAILYPRN PRN PO CONSTIPATION; Start 01/19/19 at 17:00 Quetiapine Fumarate (SEROquel) 25 mg QHS PO Last administered on 01/30/19at 21:47; Start 01/26/19 at 21:00 Sertraline HCl (Zoloft) 50 mg DAILY PO Last administered on 01/22/19at 08:40; Start 01/21/19 at 09:00; Stop 01/22/19 at 10:27; Status DC Sertraline HCl (Zoloft) 75 mg DAILY PO Last administered on 01/26/19at 08:19; Start 01/24/19 at 09:00; Stop 01/26/19 at 11:26; Status DC Sertraline HCl (Zoloft) 100 mg DAILY PO Last administered on 01/31/19at 08:29; Start 01/27/19 at 09:00 Trazodone HCl (Desyrel) 50 mg QHSP PRN PO INSOMNIA Last administered on 01/30/19at 22:13; Start 01/19/19 at 17:00 Venlafaxine HCl (Effexor Xr) 37.5 mg DAILY PO Last administered on 01/23/19at 08:42; Start 01/23/19 at 09:00; Stop 01/23/19 at 10:16; Status DC Allergies Coded Allergies: No Known Allergies (Unverified , 06/17/18) TEN RAMOS MD Jan 31, 2019 14:37
[2019-01-31 18:00] VITALS: BP 126/63
[2019-01-31] MEDS: traZODone 50 MG TAB PO PRN (21:26)
[2019-01-31] MEDS: QUEtiapine FUMARATE 25 MG TAB PO SCH (21:26)
[2019-02-01 06:41] VITALS: BP 100/59
[2019-02-01] MEDS: SERTRALINE 100 MG TAB PO SCH (09:05)
--- NOTE | 2019-02-01 10:03 | MHIPNPDOC ---
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 VITAL SIGNS: See below. NEW TEST RESULTS: None. CURRENT MEDICATIONS: See below. MENTAL STATUS EXAMINATION: Patient is a 18-year old male, who is still depressed and flat. Speech: Is, quiet. Language skills are, intact. Thought processes including:. Denies hallucinations, delusions, obsessions, compulsions, phobias. Thought content: Above. Abstract reasoning, and computation:, Minimal. Description of associations:. No loose associations. Description of abnormal or psychotic thoughts:. No psychotic thought noted. Judgment: Improved. Insight:, Limited. Orientation: Oriented 3. Recent and remote memory:. No disturbance. Attention span and concentration: Attention span, intact. Language:, As above. Fund of knowledge:, Full. Mood:, Depressed. Affect:, Flat. DIAGNOSES: 1., Dysthymic disorder. Rule out major depression. . ASSESSMENT: As per treatment team. Patient and patient's family. This young man needs longer term care and it will be provided MANAGEMENT PLAN: As above. TIME SPENT:, 35 minutes. Vital Signs Vital Signs Date Time Temp Pulse Resp B/P (MAP) Pulse Ox O2 Delivery O2 Flow Rate FiO2 02/01/19 06:41 98.1 89 18 100/59 (73) Current Medications Current Medications Acetaminophen (Tylenol Tab) 650 mg Q6HP PRN PO HEADACHE or DISCOMFORT; Start 01/19/19 at 17:00 Al Hydrox/Mg Hydrox/Simethicone (Mylanta) 30 ml Q4HP PRN PO HEARTBURN/INDIGESTION; Start 01/19/19 at 17:00 Aripiprazole (AbiLIFY) 5 mg DAILY PO Last administered on 02/01/19at 09:05; Start 01/28/19 at 09:00 Home Med (Med Rec Complete!) ASDIRECTED XX ; Start 01/19/19 at 15:00; Stop 01/19/19 at 15:00; Status DC Hydroxyzine HCl (Atarax) 25 mg Q4HP PO Last administered on 01/22/19at 08:40; Start 01/19/19 at 17:00 Magnesium Hydroxide (Milk Of Magnesia) 30 ml DAILYPRN PRN PO CONSTIPATION; Start 01/19/19 at 17:00 Quetiapine Fumarate (SEROquel) 25 mg QHS PO Last administered on 01/31/19at 21:26; Start 01/26/19 at 21:00 Sertraline HCl (Zoloft) 50 mg DAILY PO Last administered on 01/22/19at 08:40; Start 01/21/19 at 09:00; Stop 01/22/19 at 10:27; Status DC Sertraline HCl (Zoloft) 75 mg DAILY PO Last administered on 01/26/19at 08:19; Start 01/24/19 at 09:00; Stop 01/26/19 at 11:26; Status DC Sertraline HCl (Zoloft) 100 mg DAILY PO Last administered on 02/01/19at 09:05; Start 01/27/19 at 09:00 Trazodone HCl (Desyrel) 50 mg QHSP PRN PO INSOMNIA Last administered on 01/31/19at 21:26; Start 01/19/19 at 17:00 Venlafaxine HCl (Effexor Xr) 37.5 mg DAILY PO Last administered on 01/23/19at 08:42; Start 01/23/19 at 09:00; Stop 01/23/19 at 10:16; Status DC Allergies Coded Allergies: No Known Allergies (Unverified , 06/17/18) TEN RAMOS MD Feb 01, 2019 10:03
[2019-02-01 18:00] VITALS: BP 128/73
[2019-02-01] MEDS: traZODone 50 MG TAB PO PRN (22:01)
[2019-02-01] MEDS: QUEtiapine FUMARATE 25 MG TAB PO SCH (22:01)
[2019-02-02 06:14] VITALS: BP 131/58
[2019-02-02] MEDS: SERTRALINE 100 MG TAB PO SCH (08:44)
--- NOTE | 2019-02-02 09:09 | MHIPNPDOC ---
[facility] Progress Note Progress Note DATE OF SERVICE: 02/02/19 HISTORY: Patient is a 18 -year-old , AD, male, with no previous psychiatric history who was brought to ED by NCO after seen as walk-in at [facility] endorsing worsening depression over the past 3 weeks since visiting his grandfather's gave in KT and SI with plan to hang himself per ED. Per ED, pt stated that since visiting his grandfather's gave past issues have come up that he thought he was over with. Stated his grandfather pasted away when he was 10 and after that he attempted to kill himself at age 10 by swallowing quarters and 11 by hanging per ED. Pt stated that he liked his job in the [employer] in the ED and his job was not why he was feeling depressed or suicidal. VITAL SIGNS: See below. NEW TEST RESULTS: See below. CURRENT MEDICATIONS: See below. MENTAL STATUS EXAMINATION: less depressed and less suicidal today, General Appearance: well groomed, appears stated age, hospital scrubs/clothing holding his rap ranjan book Build: average Demeanor: less withdrawn Eye Contact: fair, stared at the floor when talking about going to dedicated intermodal truck driver care Activity: less anxious Behavior: cooperative, anhedonia, apprehensive about dedicated intermodal truck driver treatment Speech: clear, spontaneous, quiet speech, reg/rate, rhythm Mood: depressed, anxious Mood "ok" Affect: depressed, constricted, flat, congruent, anxious Thought Process: logical/linear, depressed, slow, intact, denies anxious thoughts at night with Seroquel Thought Content (Delusions): none reported, other (denies HI, AVH. Per 01/26/19 "Endorses SI with plan to harm himself by sharpening the end of a toothbrush that was actually found by staff slightly sharpened after his roommate given to him by his roommate that he denied when asked during interview." Pt put on 1:1 for safety. States he feels safe today with less SI and no intent. 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 Patient says he will tell someone if these thoughts become worse and says he will not act on these ideas. He is agreeable to going to custodial care. States he's tolerating abilify started yesterday and feels it beneficial as well as zoloft. His sleeping well with seroquel. Denies HI, AVH. Denies psychosis. MANAGEMENT PLAN: Continue going to group therapy sessions and current medications. It is strongly recommended that the patient go to dedicated intermodal truck driver care where he can receive targeted therapy for PTSD due to his previous trauma. Medications: zoloft 100mg daily atarax 25mg q6hr prn anxiety trazodone 50mg qhs prn insomnia seroquel 25mg qhs Abilify 5 mg daily TIME SPENT: 30 minutes. Vital Signs Vital Signs Date Time Temp Pulse Resp B/P (MAP) Pulse Ox O2 Delivery O2 Flow Rate FiO2 02/02/19 06:14 98.3 76 18 131/58 (82) Current Medications Current Medications Acetaminophen (Tylenol Tab) 650 mg Q6HP PRN PO HEADACHE or DISCOMFORT; Start 01/19/19 at 17:00 Al Hydrox/Mg Hydrox/Simethicone (Mylanta) 30 ml Q4HP PRN PO HEARTBURN/INDIGESTION; Start 01/19/19 at 17:00 Aripiprazole (AbiLIFY) 5 mg DAILY PO Last administered on 02/02/19at 08:44; Start 01/28/19 at 09:00 Home Med (Med Rec Complete!) ASDIRECTED XX ; Start 01/19/19 at 15:00; Stop 01/19/19 at 15:00; Status DC Hydroxyzine HCl (Atarax) 25 mg Q4HP PO Last administered on 01/22/19at 08:40; Start 01/19/19 at 17:00 Magnesium Hydroxide (Milk Of Magnesia) 30 ml DAILYPRN PRN PO CONSTIPATION; Start 01/19/19 at 17:00 Quetiapine Fumarate (SEROquel) 25 mg QHS PO Last administered on 02/01/19at 22:01; Start 01/26/19 at 21:00 Sertraline HCl (Zoloft) 50 mg DAILY PO Last administered on 01/22/19at 08:40; Start 01/21/19 at 09:00; Stop 01/22/19 at 10:27; Status DC Sertraline HCl (Zoloft) 75 mg DAILY PO Last administered on 01/26/19at 08:19; Start 01/24/19 at 09:00; Stop 01/26/19 at 11:26; Status DC Sertraline HCl (Zoloft) 100 mg DAILY PO Last administered on 02/02/19at 08:44; Start 01/27/19 at 09:00 Trazodone HCl (Desyrel) 50 mg QHSP PRN PO INSOMNIA Last administered on 02/01/19at 22:01; Start 01/19/19 at 17:00 Venlafaxine HCl (Effexor Xr) 37.5 mg DAILY PO Last administered on 01/23/19at 08:42; Start 01/23/19 at 09:00; Stop 01/23/19 at 10:16; Status DC Allergies Coded Allergies: No Known Allergies (Unverified , 06/17/18) KIRBY YOON DO Feb 02, 2019 9:09 am
[2019-02-02 18:14] VITALS: BP 143/64
[2019-02-02] MEDS: traZODone 50 MG TAB PO PRN (20:55)
[2019-02-02] MEDS: QUEtiapine FUMARATE 25 MG TAB PO SCH (20:55)
[2019-02-03 06:41] VITALS: BP 106/65
[2019-02-03] MEDS: SERTRALINE 100 MG TAB PO SCH (08:14)
--- NOTE | 2019-02-03 09:41 | MHIPNPDOC ---
[facility] Progress Note Progress Note DATE OF SERVICE: 02/03/19 HISTORY: Patient is a 18 -year-old , AD, male, with no previous psychiatric history who was brought to ED by NCO after seen as walk-in at [facility] endorsing worsening depression over the past 3 weeks since visiting his grandfather's gave in KT and SI with plan to hang himself per ED. Per ED, pt stated that since visiting his grandfather's gave past issues have come up that he thought he was over with. Stated his grandfather pasted away when he was 10 and after that he attempted to kill himself at age 10 by swallowing quarters and 11 by hanging per ED. Pt stated that he liked his job in [employer] in the ED and his job was not why he was feeling depressed or suicidal. VITAL SIGNS: See below. NEW TEST RESULTS: See below. CURRENT MEDICATIONS: See below. MENTAL STATUS EXAMINATION: less depressed and less suicidal today, General Appearance: well groomed, appears stated age, hospital scrubs/clothing holding his rap ranjan book Build: average Demeanor: less withdrawn Eye Contact: fair, stared at the floor when talking about going to dedicated intermodal truck driver care Activity: less anxious Behavior: cooperative, anhedonia, apprehensive about dedicated intermodal truck driver treatment Speech: clear, spontaneous, quiet speech, reg/rate, rhythm Mood: less depressed, less anxious Mood "relieved" Affect: less depressed, constricted, less flat, congruent, less anxious Thought Process: logical/linear, less depressed, intact, denies anxious thoughts at night with Seroquel Thought Content (Delusions): none reported, other (denies HI, AVH. States he feels safe today with less SI and no intent. 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 Endorses slightly less depression and suicidal thoughts are less often. Patient says he will tell someone if these thoughts become worse and says he will not act on these ideas. He is agreeable to going to dedicated intermodal truck driver care. States he's tolerating abilify and feels it beneficial as well as zoloft. Agreeable to increasing zoloft for depression. His sleeping well with seroquel. Denies HI, AVH. Denies psychosis. MANAGEMENT PLAN: Continue going to group therapy sessions and current medications. It is strongly recommended that the patient go to retirement care where he can receive targeted therapy for PTSD due to his previous trauma. Medications:increase zoloft zoloft 150mg daily atarax 25mg q6hr prn anxiety trazodone 50mg qhs prn insomnia seroquel 25mg qhs Abilify 5 mg daily TIME SPENT: 30 minutes. Vital Signs Vital Signs Date Time Temp Pulse Resp B/P (MAP) Pulse Ox O2 Delivery O2 Flow Rate FiO2 02/03/19 06:41 99.5 78 14 106/65 (79) Current Medications Current Medications Acetaminophen (Tylenol Tab) 650 mg Q6HP PRN PO HEADACHE or DISCOMFORT; Start 01/19/19 at 17:00 Al Hydrox/Mg Hydrox/Simethicone (Mylanta) 30 ml Q4HP PRN PO HEARTBUR N/INDIGESTION; Start 01/19/19 at 17:00 Aripiprazole (AbiLIFY) 5 mg DAILY PO Last administered on 02/03/19at 08:14; Start 01/28/19 at 09:00 Home Med (Med Rec Complete!) ASDIRECTED XX ; Start 01/19/19 at 15:00; Stop 01/19/19 at 15:00; Status DC Hydroxyzine HCl (Atarax) 25 mg Q4HP PO Last administered on 01/22/19at 08:40; Start 01/19/19 at 17:00 Magnesium Hydroxide (Milk Of Magnesia) 30 ml DAILYPRN PRN PO CONSTIPATION; Start 01/19/19 at 17:00 Quetiapine Fumarate (SEROquel) 25 mg QHS PO Last administered on 02/02/19at 20:55; Start 01/26/19 at 21:00 Sertraline HCl (Zoloft) 50 mg DAILY PO Last administered on 01/22/19at 08:40; Start 01/21/19 at 09:00; Stop 01/22/19 at 10:27; Status DC Sertraline HCl (Zoloft) 75 mg DAILY PO Last administered on 01/26/19at 08:19; Start 01/24/19 at 09:00; Stop 01/26/19 at 11:26; Status DC Sertraline HCl (Zoloft) 100 mg DAILY PO Last administered on 02/03/19at 08:14; Start 01/27/19 at 09:00 Trazodone HCl (Desyrel) 50 mg QHSP PRN PO INSOMNIA Last administered on 02/02/19at 20:55; Start 01/19/19 at 17:00 Venlafaxine HCl (Effexor Xr) 37.5 mg DAILY PO Last administered on 01/23/19at 08:42; Start 01/23/19 at 09:00; Stop 01/23/19 at 10:16; Status DC Allergies Coded Allergies: No Known Allergies (Unverified , 06/17/18) KIRBY YOON DO Feb 03, 2019 9:41 am
[2019-02-03] MEDS ORDERED: SERTRALINE HCL 50 MG TAB PO ONE (10:00)
[2019-02-03] MEDS: hydrOXYzine 25 MG TAB PO SCH (12:36)
[2019-02-03] MEDS ORDERED: LORazepam 2 MG TAB PO ONE (13:00)
[2019-02-03] MEDS ORDERED: hydrOXYzine 25 MG TAB PO PRN (13:00)
[2019-02-03 17:51] VITALS: BP 117/59
[2019-02-03 18:00] VITALS: BP 117/59
[2019-02-03] MEDS: traZODone 50 MG TAB PO PRN (20:34)
[2019-02-03] MEDS: QUEtiapine FUMARATE 25 MG TAB PO SCH (20:34)
[2019-02-04 06:41] VITALS: BP 115/56
[2019-02-04] MEDS: SERTRALINE HCL 50 MG TAB PO SCH (08:23)
--- NOTE | 2019-02-04 09:32 | MHDSPDOC ---
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 endorsing worsening depression over the past 3 weeks since visiting his grandfather's gave in KT and SI with plan to hang himself per ED. Per ED, pt stated that since visiting his grandfather's gave past issues have come up that he thought he was over with. Stated his grandfather pasted away when he was 10 and after that he attempted to kill himself at age 10 by swallowing quarters and 11 by hanging per ED. Pt stated that he liked his job in [employer] in the ED and his job was not why he was feeling depressed or suicidal. CONSULTANTS INVOLVED: none TREATMENT AND PROGRESS ON THE UNIT : Pt was admitted to [facility], seen for psychiatric assessment and started on zoloft increased to 150mg daily, seroquel 25mg qhs, and abilify 5mg daily. He was provided vistaril 50mg q6hr prn anxiety and trazodone 50mg qhs prn insomnia. Pt found his medications beneficial and tolerated them well. He attended groups daily during his stay. His symptoms improved mildly with treatment. During treatment he was place on 1:1 sitter for 2 days due to being found with sharpened end of a toothbrush as weapon to harm himself until he was no longer endorsing plan/intent to harm himself. On day of discharge he denied HI, hallucinations, delusions. Continues to endorse depression, anxiety, passive SI (no plan/intent). He was discharged with Jeanmarie to [facility] term [facility]. He felt safe for discharge. DISCHARGE ASSESSMENT: Patient states he feels "ok" since making the decision to going to intermodal customer service treatment yesterday. Endorses slightly less depression and suicidal thoughts are less often. Patient says he will tell someone if these thoughts become worse and says he will not act on these ideas. He is agreeable to going to intermodal customer service care and looking forward to going there today with his Jeanmarie. States he's tolerating abilify and feels it is beneficial as well as zoloft. He is tolerating all of his medication and feels they are beneficial. His sleeping well with seroquel. Denies HI, AVH. Denies psychosis. Feels safe to be discharged with Jeanmarie to [facility]. MENTAL STATUS EXAMINATION ON DISCHARGE: General Appearance: well groomed, appears stated age, hospital scrubs/clothing holding his rap ranjan book Build: average Demeanor: less withdrawn Eye Contact: fair, stared at the floor when talking about going to intermodal customer service care Activity: less anxious Behavior: cooperative, anhedonia, apprehensive about intermodal customer service treatment Speech: clear, spontaneous, quiet speech, reg/rate, rhythm Mood: less depressed, less anxious Mood "relieved" Affect: less depressed, constricted, less flat, congruent, less anxious Thought Process: logical/linear, less depressed, intact, denies anxious thoughts at night with Seroquel Thought Content (Delusions): none reported, other (denies HI, AVH.) States he feels safe today with less SI and no intent. Thought Content (Other): none reported, guilty (believes cause of grandfather's ), coherent Thought Content (Aggressive): none reported Perception (Hallucinations): none reported Perception (Other): none reported Cognition (Impairment of): none reported Cognition(Intelligence Est.): average Oriented: Awake, Alert, Oriented times three Insight: poor Judgment: Poor Psychosis: Denies MEDICATIONS ON DISCHARGE: zoloft 150mg daily atarax 50mg q6hr prn anxiety trazodone 50mg qhs prn insomnia seroquel 25mg qhs Abilify 5mg daily PLAN/FOLLOWUP ARRANGEMENTS: D/C with Jeanmarie to [facility]. The amount of time spent in the coordination of care for this patient was approximately 30 minutes. Vital Signs/I&Os Vital Signs Date Time Temp Pulse Resp B/P (MAP) Pulse Ox O2 Delivery O2 Flow Rate FiO2 02/04/19 06:41 98.2 94 14 115/56 (75) Medications No Active Prescriptions or Reported Meds Allergies Coded Allergies: No Known Allergies (Unverified , 06/17/18) KIRBY YOON DO Feb 04, 2019 9:32 am
--- NOTE | 2019-02-04 09:35 | MHIPNPDOC ---
[facility] Progress Note Progress Note DATE OF SERVICE: 02/04/19 HISTORY: Patient is a 18 -year-old , AD, male, with no previous psychiatric history who was brought to ED by NCO after seen as walk-in at [facility] endorsing worsening depression over the past 3 weeks since visiting his grandfather's gave in KT and SI with plan to hang himself per ED. Per ED, pt stated that since visiting his grandfather's gave past issues have come up that he thought he was over with. Stated his grandfather pasted away when he was 10 and after that he attempted to kill himself at age 10 by swallowing quarters and 11 by hanging per ED. Pt stated that he liked his job in [employer] in the ED and his job was not why he was feeling depressed or suicidal. VITAL SIGNS: See below. NEW TEST RESULTS: See below. CURRENT MEDICATIONS: See below. MENTAL STATUS EXAMINATION: less depressed and less suicidal today, General Appearance: well groomed, appears stated age, hospital scrubs/clothing holding his rap ranjan book Build: average Demeanor: less withdrawn Eye Contact: fair, stared at the floor when talking about going to intermediate manager care Activity: less anxious Behavior: cooperative, anhedonia, apprehensive about intermediate manager treatment Speech: clear, spontaneous, quiet speech, reg/rate, rhythm Mood: less depressed, less anxious Mood "relieved" Affect: less depressed, constricted, less flat, congruent, less anxious Thought Process: logical/linear, less depressed, intact, denies anxious thoughts at night with Seroquel Thought Content (Delusions): none reported, other (denies HI, AVH. States he feels safe today with less SI and no intent. 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 Will have a friend watch his dog while he's in intermediate manager treatment Endorses slightly less depression and suicidal thoughts are less often. Patient says he will tell someone if these thoughts become worse and says he will not act on these ideas. He is agreeable to going to group home care. States he's tolerating abilify and feels it is beneficial as well as zoloft. His sleeping well with seroquel. Denies HI, AVH. Denies psychosis. MANAGEMENT PLAN: D/c to [facility] intermediate manager treatment with Jeanmarie tomorrow. Pt to go on pass to pack with Jeanmarie Medications: zoloft 150mg daily atarax 25mg q6hr prn anxiety trazodone 50mg qhs prn insomnia seroquel 25mg qhs Abilify 5 mg daily TIME SPENT: 30 minutes. Vital Signs Vital Signs Date Time Temp Pulse Resp B/P (MAP) Pulse Ox O2 Delivery O2 Flow Rate FiO2 02/04/19 06:41 98.2 94 14 115/56 (75) Current Medications Current Medications Acetaminophen (Tylenol Tab) 650 mg Q6HP PRN PO HEADACHE or DISCOMFORT; Start 01/19/19 at 17:00 Al Hydrox/Mg Hydrox/Simethicone (Mylanta) 30 ml Q4HP PRN PO HEARTBURN/INDIGESTION; Start 01/19/19 at 17:00 Aripiprazole (AbiLIFY) 5 mg DAILY PO Last administered on 02/04/19at 08:22; Start 01/28/19 at 09:00 Home Med (Med Rec Complete!) ASDIRECTED XX ; Start 01/19/19 at 15:00; Stop 01/19/19 at 15:00; Status DC Hydroxyzine HCl (Atarax) 25 mg Q4HP PO Last administered on 02/03/19at 12:36; Start 01/19/19 at 17:00; Stop 02/03/19 at 12:53; Status DC Hydroxyzine HCl (Atarax) 25 mg Q4HP PRN PO ANXIETY/AGITATION; Start 02/03/19 at 13:00 Magnesium Hydroxide (Milk Of Magnesia) 30 ml DAILYPRN PRN PO CONSTIPATION; Start 01/19/19 at 17:00 Quetiapine Fumarate (SEROquel) 25 mg QHS PO Last administered on 02/03/19at 20:34; Start 01/26/19 at 21:00 Sertraline HCl (Zoloft) 50 mg DAILY PO Last administered on 01/22/19at 08:40; Start 01/21/19 at 09:00; Stop 01/22/19 at 10:27; Status DC Sertraline HCl (Zoloft) 75 mg DAILY PO Last administered on 01/26/19at 08:19; Start 01/24/19 at 09:00; Stop 01/26/19 at 11:26; Status DC Sertraline HCl (Zoloft) 100 mg DAILY PO Last administered on 02/03/19at 08:14; Start 01/27/19 at 09:00; Stop 02/03/19 at 09:42; Status DC Sertraline HCl (Zoloft) 150 mg DAILY PO Last administered on 02/04/19at 08:23; Start 02/04/19 at 09:00 Trazodone HCl (Desyrel) 50 mg QHSP PRN PO INSOMNIA Last administered on 02/03/19at 20:34; Start 01/19/19 at 17:00 Venlafaxine HCl (Effexor Xr) 37.5 mg DAILY PO Last administered on 01/23/19at 08:42; Start 01/23/19 at 09:00; Stop 01/23/19 at 10:16; Status DC Allergies Coded Allergies: No Known Allergies (Unverified , 06/17/18) KIRBY YOON DO Feb 04, 2019 9:15 am
[2019-02-04 18:28] VITALS: BP 150/70
[2019-02-04] MEDS: QUEtiapine FUMARATE 25 MG TAB PO SCH (21:00)
[2019-02-04] MEDS: traZODone 50 MG TAB PO PRN (21:00)
[2019-02-05] MEDS: SERTRALINE HCL 50 MG TAB PO SCH (03:30)
== END 2019-02-05 04:00 | DRG 885 ==
LOC: M ED 12:44 → M ED INP 16:49 → M PSY 17:33
PROVIDERS: ADMIT Psychiatry & Neurology Psychiatry; ATTEND Psychiatry & Neurology Psychiatry
DX: F33.2 Major depressive disorder, recurrent severe without psychotic features (principal); R45.851 Suicidal ideations; F43.10 Post-traumatic stress disorder, unspecified; Z63.4 Disappearance and death of family member

== ENCOUNTER 2019-04-08 19:29 | Emergency (ER) | payer OTHER ==
[~2019-04-08] VITALS: Ht 172.7 cm; Wt 76.8 kg
[2019-04-08] MEDS ORDERED: [UNRECOGNIZED DRUG - OTHER] (19:38)
[2019-04-08] MEDS ORDERED: TRAZ-186 PO (19:38)
[2019-04-08] MEDS ORDERED: ABIL10TA9 PO (19:38)
[2019-04-08 20:44] LABS: HEMATOCRIT 42.8 % (42.0-52.0); HEMOGLOBIN 15.6 g/dl (13.5-17.5); MEAN CORPUSCULAR HEMOGLOBIN 32.2 pg (27.0-33.0); MEAN CORPUSCULAR HGB CONC 36.4 g/dl (32.0-36.5); MEAN CORPUSCULAR VOLUME 88.4 fl (80.0-96.0); PLATELET COUNT, AUTOMATED 162 10^3/uL (150-450); RED BLOOD COUNT 4.84 10^6/uL (4.30-6.10)
[2019-04-08 21:16] LABS: ACETAMINOPHEN LEVEL < 2.0 UG/ML (10.0-30.0); ALT/SGPT 21 U/L (12-78); BILIRUBIN,DIRECT 0.1 MG/DL (0.0-0.2); BILIRUBIN,TOTAL 0.2 MG/DL (0.2-1.0); BLOOD UREA NITROGEN 16 MG/DL (7-18); CALCIUM LEVEL 9.4 MG/DL (8.5-10.1); CARBON DIOXIDE LEVEL 29 MEQ/L (21-32); CHLORIDE LEVEL 107 MEQ/L (98-107); CREATININE FOR GFR 1.16 MG/DL (0.70-1.30); ETHYL ALCOHOL (ETHANOL) < 0.003 % (0.000-0.010); GLUCOSE, FASTING 93 MG/DL (70-100); SALICYLATE LEVEL < 1.7 MG/DL (5.0-30.0); SODIUM LEVEL 142 MEQ/L (136-145); TOTAL PROTEIN 6.6 GM/DL (6.4-8.2)
[2019-04-08 21:48] LABS: AMPHETAMINES LEVEL URINE NEGATIVE (NEGATIVE); BARBITURATES URINE NEGATIVE (NEGATIVE); BENZODIAZEPINES URINE NEGATIVE (NEGATIVE); CANNABINOIDS URINE NEGATIVE (NEGATIVE); COCAINE METABOLITE URINE NEGATIVE (NEGATIVE); METHADONE URINE NEGATIVE (NEGATIVE); OPIATES URINE NEGATIVE (NEGATIVE); PHENCYCLIDINE URINE NEGATIVE (NEGATIVE)
[2019-04-09 09:32] VITALS: BP 120/57
--- NOTE | 2019-04-09 13:38 | ECGEPIP ---
[facility] - ED Test Date: 2019-04-08 Pat Name: GASTON POLO Department: Room: - Gender: Male Internal Recruiter: VISHNU : 2000 Requested By: MERYL Kerr Order Number: [id number] Reading MD: Anthony Hubbard Measurements Intervals [place] Rate: 69 P: 55 UT: 142 QRS: 28 QRSD: 99 T: 29 QT: 355 QTc: 381 Interpretive Statements SINUS RHYTHM WITH OCCASIONAL VENTRICULAR PREMATURE COMPLEXES INCOMPLETE RIGHT BUNDLE BRANCH BLOCK NSTTW ABNORMALITIES SIMILAR TO 10/24/18 Electronically Signed on 04-09-2019 13:38:28 EDT by Anthony Hubbard
== END 2019-04-09 09:32 ==
LOC: M ED 19:29
DX: T14.91XA Suicide attempt, initial encounter (principal); Y92.59 Other trade areas as the place of occurrence of the external cause; Y93.89 Activity, other specified; R44.3 Hallucinations, unspecified; I45.19 Other right bundle-branch block; F32.9 Major depressive disorder, single episode, unspecified; Z91.5 Personal history of self-harm; Z79.899 Other long term (current) drug therapy
CPT/HCPCS: 80048; 80076; 80307; 82375; 84443; 85027; 93005; 99285; G0480

== ENCOUNTER 2019-06-15 09:48 | Emergency (ER) | payer OTHER ==
[~2019-06-15] VITALS: Ht 175.3 cm; Wt 79.5 kg
[~2019-06-15 09:48] MED LIST changes: +ABIL10TA9 PO; +TRAZ-186 PO; +[UNRECOGNIZED DRUG - OTHER]
[2019-06-15 10:20] LABS: HEMATOCRIT 47.6 % (42.0-52.0); HEMOGLOBIN 16.7 g/dl (13.5-17.5); MEAN CORPUSCULAR HEMOGLOBIN 31.6 pg (27.0-33.0); MEAN CORPUSCULAR HGB CONC 35.1 g/dl (32.0-36.5); MEAN CORPUSCULAR VOLUME 90.2 fl (80.0-96.0); PLATELET COUNT, AUTOMATED 161 10^3/uL (150-450); RED BLOOD COUNT 5.28 10^6/uL (4.30-6.10); WHITE BLOOD COUNT 6.7 10^3/uL (4.0-10.0)
[2019-06-15 10:49] LABS: AMPHETAMINES LEVEL URINE NEGATIVE (NEGATIVE); BARBITURATES URINE NEGATIVE (NEGATIVE); BENZODIAZEPINES URINE NEGATIVE (NEGATIVE); CANNABINOIDS URINE NEGATIVE (NEGATIVE); COCAINE METABOLITE URINE NEGATIVE (NEGATIVE); METHADONE URINE NEGATIVE (NEGATIVE); OPIATES URINE NEGATIVE (NEGATIVE); PHENCYCLIDINE URINE NEGATIVE (NEGATIVE)
[2019-06-15 11:00] LABS: ACETAMINOPHEN LEVEL < 2.0 UG/ML (10.0-30.0); ALBUMIN 4.3 GM/DL (3.2-5.2); ALT/SGPT 63 U/L (12-78); BILIRUBIN,DIRECT < 0.1 MG/DL (0.0-0.2); BILIRUBIN,TOTAL 0.3 MG/DL (0.2-1.0); BLOOD UREA NITROGEN 13 MG/DL (7-18); CALCIUM LEVEL 9.8 MG/DL (8.5-10.1); CARBON DIOXIDE LEVEL 33 MEQ/L (21-32); CHLORIDE LEVEL 104 MEQ/L (98-107); CREATININE FOR GFR 1.18 MG/DL (0.70-1.30); ETHYL ALCOHOL (ETHANOL) < 0.003 % (0.000-0.010); GLUCOSE, FASTING 77 MG/DL (70-100); POTASSIUM SERUM 4.2 MEQ/L (3.5-5.1); SALICYLATE LEVEL < 1.7 MG/DL (5.0-30.0); SODIUM LEVEL 141 MEQ/L (136-145); TOTAL PROTEIN 7.6 GM/DL (6.4-8.2)
[2019-06-15] MEDS ORDERED: ABIL1TAB13 PO (12:58)
[2019-06-15] MEDS ORDERED: FLUV100T2 PO (12:58)
--- NOTE | 2019-06-15 20:37 | ECGEPIP ---
[facility] - ED Test Date: 2019-06-15 Pat Name: GASTON POLO Department: Room: - Gender: Male Android Ios Developer: DIMITRI : 2000 Requested By: SUGEY PALMER Order Number: [id number] Reading MD: Idania Romo Measurements Intervals [place] Rate: 63 P: 29 MD: 139 QRS: 43 QRSD: 102 T: 27 QT: 356 QTc: 367 Interpretive Statements SINUS RHYTHM POSSIBLE RIGHT VENTRICULAR CONDUCTION DELAY NONSPECIFIC ST T WAVE CHANGES CW 03/30/[address] T WAVE CHANGES Electronically Signed on 06-15-2019 20:37:12 EDT by Idania Romo
[2019-06-16 09:03] VITALS: BP 146/75
== END 2019-06-16 09:09 ==
LOC: M ED 09:48
DX: R45.851 Suicidal ideations (principal); F41.9 Anxiety disorder, unspecified; F32.9 Major depressive disorder, single episode, unspecified; Z79.899 Other long term (current) drug therapy
CPT/HCPCS: 36415; 80048; 80076; 80307; 84443; 85027; 93005; 99285; G0480